=== PATIENT | female | born 1995 | race Caucasian/White ===

== ENCOUNTER 2021-07-23 23:06 | Emergency (ER) | payer OTHER ==
[~2021-07-23] VITALS: Ht 157.5 cm; Wt 50.0 kg
[2021-07-23 23:37] LABS: HEMATOCRIT 39.5 % (37.0-47.0); IMMATURE GRANULOCYTES 0.4 % (0.0-5.0); MEAN CELL VOLUME 92.9 fL CALC (80.0-100.0); MEAN CORPUSCULAR HGB 30.6 pG CALC (26.0-32.0); MEAN CORPUSCULAR HGB CONC 32.9 g/dL CAL (32.0-36.0); NEUT# 5.84 thou/uL (2.00-7.15); RED BLOOD COUNT 4.25 mill/uL (4.20-5.60)
[2021-07-23 23:48] LABS: ALBUMIN 4.8 g/dL (3.2-5.0); ALKALINE PHOSPHATASE 69 u/l (38-126); ANION GAP 15 (6-22 (CALC)); BILIRUBIN, TOTAL 0.6 mg/dL (0.0-1.4); BUN 18 mg/dL (7-17); BUN/CREATININE RATIO 26 (12-20 (CALC)); CARBON DIOXIDE 22 mmol/l (22-30); CHLORIDE 104 mmol/l (95-108); CREATININE 0.7 mg/dL (0.5-1.0); GFR > 60 ML/MIN (>=60 (CALC)); GFR FOR AFR.AMER. > 60 ML/MIN (>=60 (CALC)); POTASSIUM 3.9 mmol/l (3.5-5.1); SGOT/AST 28 u/l (14-36); SODIUM 138 mmol/l (137-146); TOTAL PROTEIN 8.4 g/dL (6.3-8.2)
[2021-07-24] MEDS ORDERED: PEPCID20 MG PO (00:34)
[2021-07-24] MEDS ORDERED: MEDDOSEPAK PO (00:34)
[2021-07-24] MEDS ORDERED: BENADRYL ALLERG25 MG PO (00:34)
[2021-07-24 00:53] VITALS: BP 115/69
== END 2021-07-24 01:06 | disposition home or self-care (01) | DRG 916 ==
LOC: ED 23:06
PROVIDERS: Emergency Medicine
DX: T78.3XXA Angioneurotic edema, initial encounter (principal)

== ENCOUNTER 2023-04-22 13:35 | Emergency (ER) | payer BC ==
[2023-04-22] VITALS (8 sets, daily range): BP systolic 102–113; BP diastolic 66–80
[~2023-04-22] VITALS: Ht 157.5 cm; Wt 46.2 kg
[~2023-04-22 13:35] MED LIST: BENADRYL ALLERG25 MG PO; MEDDOSEPAK PO; PEPCID20 MG PO
== END 2023-04-22 15:50 | disposition home or self-care (01) | DRG 556 ==
LOC: ED 13:35
DX: M25.571 Pain in right ankle and joints of right foot (principal); M79.671 Pain in right foot; R55 Syncope and collapse